=== PATIENT | male | born 1945 | race Caucasian/White ===

== ENCOUNTER 2016-08-07 11:42 | Day surgery (SDC) | payer MEDICARE, BC ==
[~2016-08-07 11:42] MED LIST: Buffered Lidocaine 1% SYR 3ML* 3 ML/SYR SYRINGE INTRADERM ONE; Dexamethasone IV* 4 MG/ML 1 ML (4 MG) IV SLOW PU ONE; Famotidine IV* 10 MG/ML 2 ML (20 mg) IV ONE
[2016-08-07] MEDS ORDERED: Dexamethasone IV* 4 MG/ML 1 ML (4 MG) ONE (12:16)
[2016-08-07] MEDS ORDERED: Famotidine IV* 10 MG/ML 2 ML (20 mg) ONE (12:16)
[2016-08-07] MEDS ORDERED: ceFAZolin 2 GM PREMIX (*) 2 GM/50 ML BAG IVPB ONE (12:17)
[2016-08-07] MEDS ORDERED: Methylene Blue 1%* 10 ML VIAL ONE (13:30)
[2016-08-07] MEDS ORDERED: Lidocain 1% EPI 1:100,000 * 30 ML MDV ONE (13:30)
[2016-08-07] MEDS ORDERED: Bupivacaine 0.25% W/EPI* 50 ML VIAL ONE (13:30)
[2016-08-07] MEDS ORDERED: Mineral Oil Sterile, TOPICAL* 25 ML BTL ONE (13:31)
[2016-08-07] MEDS ORDERED: fentaNYL* 50 MCG/ML 2 ML VIAL (100 MCG VIAL) ONE (13:42)
[2016-08-07] MEDS ORDERED: Ondansetron INJ* 2 MG/ML VIAL ONE (13:42)
[2016-08-07] MEDS ORDERED: Propofol* 10 MG/ML 20 ML BTL IV PUSH ONE (13:42)
[2016-08-07] MEDS ORDERED: Midazolam* 1 MG/ML 5 ML VIAL (5 MG) ONE (13:42)
[2016-08-07 15:42] VITALS: BP 116/64
== END 2016-08-07 15:35 | disposition home or self-care (01) ==
LOC: OR 11:42
PROVIDERS: ATTEND Plastic Surgery
DX: C43.4 Malignant melanoma of scalp and neck (principal); E11.9 Type 2 diabetes mellitus without complications; I25.10 Atherosclerotic heart disease of native coronary artery without angina pectoris; I10 Essential (primary) hypertension; Z85.46 Personal history of malignant neoplasm of prostate; Z95.5 Presence of coronary angioplasty implant and graft; Z95.1 Presence of aortocoronary bypass graft
CPT/HCPCS: 88305; A9270-GY; J0690; J1100; J2250; J2405; J2704; J3010

== ENCOUNTER 2018-02-08 17:04 | Emergency (ER) | payer BC, MEDICARE, OTHER ==
[2018-02-08 20:03] VITALS: BP 0/0
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
== END 2018-02-08 20:02 | disposition home or self-care (01) ==
LOC: ED 17:04
DX: S16.1XXA Strain of muscle, fascia and tendon at neck level, initial encounter (principal); V43.52XA Car driver injured in collision with other type car in traffic accident, initial encounter; Y92.410 Unspecified street and highway as the place of occurrence of the external cause; Z87.891 Personal history of nicotine dependence
CPT/HCPCS: 99282

== ENCOUNTER 2020-04-27 16:22 | Observation (INO) ==
[2020-04-27] MEDS ORDERED: cefTRIAXone 1 gm/50 mL NS BAG 1 GM/50 ML BAG IV ONE (19:56)
[2020-04-27] MEDS ORDERED: Morphine 10 MG/ML VIAL (1 ml) IV ONE (19:57)
[2020-04-27] MEDS ORDERED: Ondansetron 4 mg VIAL 2 MG/ML 2 ml VIAL IV ONE (19:57)
[2020-04-27 20:10] LABS: ABS Monocytes 0.9 10^3/ul (0-0.8); ABS Neutrophils 10.7 10^3/ul (1.5-7.7); Eosinophil % 0.1 %; Hematocrit 45 % (42-52); Hemoglobin 15.5 g/dL (14.0-18.0); Lymphocyte % 7.9 %; Mean Corpuscular HGB Conc 34 g/dL (31-36); Mean Corpuscular Hemoglobin 29 pg (27-31); Mean Corpuscular Volume 84 fL (80-94); Mean Platelet Volume 7.3 fL (7.4-10.4); Platelet Count 223 10^3/uL (150-450); Red Blood Count 5.41 10^6 /uL (4.18-5.48); Red Cell Distribution Width 15 % (10-15); White Blood Count 12.6 10^3/uL (3.5-10.8)
[2020-04-27 20:20] LABS: INR 1.02 (0.82-1.09)
[2020-04-27 20:23] LABS: Troponin I 0.01 ng/mL (<0.03)
[2020-04-27] MEDS: NS 0.9% 1000 ml BAG 2,000 ML IV ONE (20:29)
[2020-04-27 20:30] LABS: Albumin 4.7 g/dL (3.2-5.2); Albumin/Globulin Ratio 1.6 (1-3); BUN/Creatinine Ratio 18.3 (8-20); Calcium 10.1 mg/dL (8.6-10.3); EGFR African American 64.7 (>60); EGFR Non-African American 53.5 (>60); Potassium 4.1 mmol/L (3.5-5.0); Total Bilirubin 0.5 mg/dL (0.2-1.0); Total Protein 7.7 g/dL (6.4-8.9)
[2020-04-27 23:15] LABS: Urine Appearance Cloudy; Urine Bacteria Absent (Absent); Urine Bilirubin Negative (Negative); Urine Blood 3+ (Negative); Urine Glucose Negative (Negative); Urine Ketones Negative (Negative); Urine Nitrite Negative (Negative); Urine Protein 1+(30 mg/dL) (Negative); Urine Red Blood Cell 3+(>10/hpf) (Absent); Urine Specific Gravity 1.009 (1.010-1.030); Urine Squamous Epithelial Cell Present (Absent); Urine Urobilinogen Negative (Negative); Urine White Blood Cell 3+(>20/hpf) (Absent)
[2020-04-27 23:25] LABS: Urine Color Red
[2020-04-28] MEDS ORDERED: Dextrose 50% Syringe 50 ml 25 GM/50 ML SYRINGE IV PUSH PRN (01:03)
[2020-04-28] MEDS: NS 0.9% 1000 ml BAG 1,000 ML IV SCH ×2 (01:24→11:38)
[2020-04-28] MEDS: Morphine 2 MG/ML SYRINGE IV PRN ×3 (04:05→14:58)
[2020-04-28] MEDS: Ondansetron 4 mg VIAL 2 MG/ML 2 ml VIAL IV PRN ×3 (04:07→14:59)
[2020-04-28] MEDS ORDERED: Morphine 2 MG/ML SYRINGE IV PRN ×2 (04:35→16:39)
[2020-04-28 06:33] LABS: ABS Lymphocytes 1.1 10^3/ul (1.0-4.8); ABS Neutrophils 7.1 10^3/ul (1.5-7.7); Eosinophil % 0.5 %; Hematocrit 41 % (42-52); Hemoglobin 13.7 g/dL (14.0-18.0); Lymphocyte % 11.7 %; Mean Corpuscular HGB Conc 34 g/dL (31-36); Mean Corpuscular Hemoglobin 29 pg (27-31); Mean Corpuscular Volume 85 fL (80-94); Mean Platelet Volume 7.4 fL (7.4-10.4); Platelet Count 179 10^3/uL (150-450); Red Blood Count 4.77 10^6 /uL (4.18-5.48); Red Cell Distribution Width 14 % (10-15); White Blood Count 9.3 10^3/uL (3.5-10.8)
[2020-04-28 06:48] LABS: BUN/Creatinine Ratio 15.8 (8-20); Calcium 8.6 mg/dL (8.6-10.3); EGFR African American 54.5 (>60); EGFR Non-African American 45.1 (>60); Potassium 4.1 mmol/L (3.5-5.0)
[2020-04-28] MEDS ORDERED: Isosorbide Mononit ER 60mg TAB PO SCH (09:00)
[2020-04-28] MEDS ORDERED: Aspirin EC 81 mg TAB.EC (enteric coated) PO SCH (09:00)
[2020-04-28] MEDS ORDERED: cefTRIAXone 1 gm/50 mL NS BAG 1 GM/50 ML BAG ONE (17:45)
[2020-04-28] MEDS ORDERED: Ondansetron 4 mg VIAL 2 MG/ML 2 ml VIAL IV PRN (18:54)
[2020-04-28] MEDS ORDERED: fentaNYL 100 mcg/2 ml 50 MCG/ML VIAL IV PRN (18:54)
[2020-04-28] MEDS ORDERED: Naloxone 0.4 mg VIAL 0.4 mg/ml 1 ml VIAL IV PRN (18:54)
[2020-04-28 20:41] VITALS: BP 180/84
== END 2020-04-28 20:59 | disposition home or self-care (01) ==
LOC: ED 16:22 → SSU 16:22
PROVIDERS: ADMIT Student in an Organized Health Care Education/Training Program; ATTEND Urology

== ENCOUNTER 2023-06-15 09:02 | Observation (INO) ==
[2023-06-15 09:31] LABS: ABS Monocytes 0.6 10^3/uL (0.0-1.1); ABS Neutrophils 5.6 10^3/uL (1.5-7.6); ABS Nucleated RBC 0.01 10^3/ul; Eosinophil % 0.5 %; Hematocrit 46.9 % (38-53); Hemoglobin 15.7 g/dL (13.2-16.3); Lymphocyte % 13.5 %; Mean Corpuscular Hemoglobin 28.4 pg (27-33); Mean Corpuscular Hgb Conc 33.5 g/dL (31-36); Mean Corpuscular Volume 84.7 fL (80-97); Mean Platelet Volume 7.5 fL (7.5-11.2); Nucleated Red Blood Cells % 0.1 %/100WBC (0.0-0.8); Platelet Count 210 10^3/uL (150-450); Red Blood Count 5.53 10^6/uL (4.06-5.63); Red Cell Distribution Width 14.9 % (12-17); White Blood Count 7.3 10^3/uL (3.6-10.2)
[2023-06-15 09:40] LABS: INR 1.1 (0.83-1.13)
[2023-06-15 09:51] LABS: ALT 18 U/L (7-52); AST 25 U/L (13-39); Albumin 4.2 g/dL (3.2-5.2); Albumin/Globulin Ratio 1.6 (1-3); Alkaline Phosphatase 33 U/L (35-149); Anion Gap 7 mmol/L (2-16); Blood Urea Nitrogen 29 mg/dL (6-24); CO2 Carbon Dioxide 27 mmol/L (22-32); Calcium 9.5 mg/dL (8.6-10.3); Chloride 100 mmol/L (101-111); Creatinine, Serum 1.49 mg/dL (0.67-1.17); Globulin 2.6 g/dL (2-4); Glucose 187 mg/dL (70-100); Potassium 4.3 mmol/L (3.5-5.0); Sodium 134 mmol/L (135-145); Total Bilirubin 0.5 mg/dL (0.2-1.0); Total Protein 6.8 g/dL (6.4-8.9)
[2023-06-15 09:57] LABS: High Sens Troponin Baseline 7 pg/mL (<20)
[2023-06-15] MEDS ORDERED: cefTRIAXone 2 gm/50 mL D5W 2 GM/50 ML BAG IV ONE (10:32)
[2023-06-15 11:29] LABS: High Sensitivity Troponin 1 Hr 9 pg/mL (<20)
[2023-06-15] MEDS ORDERED: Dextrose 50% Syringe 50 ml 25 GM/50 ML SYRINGE IV PUSH PRN (11:41)
[2023-06-15] MEDS ORDERED: Iohexol 180 (CONTRAST) 10 ML SDV IV ONE (11:42)
[2023-06-15 11:44] LABS: C Reactive Protein < 1.00 mg/L (<8.01); Magnesium 1.9 mg/dL (1.9-2.7)
[2023-06-15] MEDS ORDERED: Lidocaine 2% PF 5 ML VIAL ONE (12:01)
[2023-06-15] MEDS ORDERED: Dexamethasone IV 4 MG/ML VIAL 1 ml VIAL ONE (12:01)
[2023-06-15] MEDS ORDERED: fentaNYL 100 mcg/2 ml 50 MCG/ML VIAL ONE (12:01)
[2023-06-15] MEDS ORDERED: Ondansetron 4 mg VIAL 2 MG/ML 2 ml VIAL ONE (12:01)
[2023-06-15] MEDS ORDERED: Propofol 10 MG/ML 20 ML BTL ONE (12:01)
[2023-06-15 12:02] LABS: Lipase 24 U/L (11.0-82.0)
[2023-06-15] MEDS ORDERED: Famotidine IV 10 MG/ML 2 ml VIAL (20 mg) ONE (12:15)
[2023-06-15] MEDS ORDERED: Phenylephrine IV 10 MG/ML 1 ml VIAL ONE (12:30)
[2023-06-15] MEDS ORDERED: Acetaminophen IV 1 GM/100ML 1,000 MG/100 ML BAG IV PRN (13:12)
[2023-06-15] MEDS ORDERED: Naloxone 0.4 mg VIAL 0.4 mg/ml 1 ml VIAL IV PRN (13:12)
[2023-06-15] MEDS ORDERED: fentaNYL 100 mcg/2 ml 50 MCG/ML VIAL IV PRN (13:12)
[2023-06-15] MEDS ORDERED: Ondansetron 4 mg VIAL 2 MG/ML 2 ml VIAL IV PRN (13:12)
[2023-06-15] MEDS ORDERED: HYDROmorphone 1 MG/1 ML SYRINGE IV PRN (13:12)
[2023-06-15] MEDS: Calcium Carb (TUMS) 500 mg CHEW TAB PO PRN (22:18)
[2023-06-16] MEDS: Calcium Carb (TUMS) 500 mg CHEW TAB PO PRN (02:49)
[2023-06-16] MEDS ORDERED: Ondansetron 4 mg VIAL 2 MG/ML 2 ml VIAL IV PRN (02:54)
[2023-06-16] MEDS ORDERED: Ondansetron 4 mg VIAL 2 MG/ML 2 ml VIAL ONE (03:15)
[2023-06-16 08:34] LABS: ABS Lymphocytes 1.6 10^3/uL (1.0-4.8); Eosinophil % 0.4 %; Hematocrit 48.3 % (38-53); Hemoglobin 16.1 g/dL (13.2-16.3); Lymphocyte % 13.9 %; Mean Corpuscular Hemoglobin 28.2 pg (27-33); Mean Corpuscular Hgb Conc 33.2 g/dL (31-36); Mean Corpuscular Volume 84.9 fL (80-97); Mean Platelet Volume 7.8 fL (7.5-11.2); Platelet Count 220 10^3/uL (150-450); Red Cell Distribution Width 14.9 % (12-17); White Blood Count 11.7 10^3/uL (3.6-10.2)
[2023-06-16 08:51] LABS: Calcium 10.1 mg/dL (8.6-10.3); Creatinine, Serum 1.44 mg/dL (0.67-1.17); Potassium 4.1 mmol/L (3.5-5.0)
[2023-06-16] MEDS ORDERED: Aspirin EC 81 mg TAB.EC (enteric coated) PO SCH (09:00)
[2023-06-16 10:29] VITALS: BP 100/60
== END 2023-06-16 13:20 | disposition home or self-care (01) ==
LOC: ED 09:02 → EDHOLD 11:14 → INTOOBSV 11:14 → SUATTDRO 11:14 → MED 12:07 → AA 12:07 → SSU 12:07
PROVIDERS: ADMIT Hospitalist; ATTEND Student in an Organized Health Care Education/Training Program

== ENCOUNTER 2024-06-19 17:38 | Observation (INO) ==
[2024-06-19] MEDS: Ondansetron 4 mg VIAL 2 MG/ML 2 ml VIAL IV ONE (18:00)
[2024-06-19] MEDS: Acetaminophen IV 1 GM/100ML 1,000 MG/100 ML BAG IV ONE (18:00)
[2024-06-19] MEDS: Lactated Ringers SEPSIS* BAG 2,120 ML IV ONE (18:11)
[2024-06-19 18:13] LABS: ABS Basophils 0.1 10^3/uL (0.0-0.1); ABS Eosinophils 0.1 10^3/uL (0.0-0.5); ABS Lymphocytes 0.8 10^3/uL (1.0-4.8); ABS Monocytes 0.3 10^3/uL (0.0-1.1); ABS Neutrophils 5.6 10^3/uL (1.5-7.6); ABS Nucleated RBC 0.01 10^3/ul; Eosinophil % 1.5 %; Hematocrit 54.7 % (38-53); Hemoglobin 18.4 g/dL (13.2-16.3); Lymphocyte % 11.7 %; Mean Corpuscular Hemoglobin 28.3 pg (27-33); Mean Corpuscular Hgb Conc 33.7 g/dL (31-36); Mean Corpuscular Volume 83.8 fL (80-97); Mean Platelet Volume 7.2 fL (7.5-11.2); Nucleated Red Blood Cells % 0.2 %/100WBC (0.0-0.8); Platelet Count 145 10^3/uL (150-450); Red Blood Count 6.53 10^6/uL (4.06-5.63); Red Cell Distribution Width 16.6 % (12-17); White Blood Count 6.8 10^3/uL (3.6-10.2)
[2024-06-19 18:33] LABS: Activated Partial Thrombo Time 29.5 seconds (26.0-38.0); INR 1.03 (0.85-1.14)
[2024-06-19 18:56] LABS: Albumin 4.5 g/dL (3.5-5.7); Albumin/Globulin Ratio 1.6 (1-3); C Reactive Protein 16.02 mg/L (<8.01); Calcium 10.5 mg/dL (8.6-10.3); Creatinine, Serum 1.26 mg/dL (0.67-1.17); Globulin 2.9 g/dL (2-4); Potassium 3.9 mmol/L (3.5-5.0); Total Bilirubin 0.8 mg/dL (0.2-1.0); Total Protein 7.4 g/dL (6.4-8.9); eGFR CKD-EPI 58.4 (>60)
[2024-06-19 19:15] LABS: Urine Appearance Clear; Urine Bacteria 1+ /HPF (Absent); Urine Bilirubin Negative (Negative); Urine Blood 1+ (Negative); Urine Color Yellow; Urine Glucose 4+ (>=1000 mg/dL) (Negative); Urine Ketones 2+ (Negative); Urine Nitrite Negative (Negative); Urine Protein Trace (Negative); Urine Red Blood Cell 3+(>10/hpf) /HPF (0-Trace); Urine Squamous Epithelial Cell Present /HPF (Absent); Urine Urobilinogen Negative (Negative); Urine White Blood Cell 3+(>20/hpf) /HPF (0-Trace); Urine pH 6.5 (5.0-8.0)
[2024-06-19 19:41] LABS: High Sensitivity Troponin 1 Hr 12 pg/mL (<20)
[2024-06-19] MEDS: cefTRIAXone 2 gm/50 mL D5W 2 GM/50 ML BAG IV ONE (19:48)
[2024-06-19] MEDS ORDERED: Sulfur Hexaflouride MICROSPHR 25 MG VIAL IV PRN (23:26)
[2024-06-19] MEDS: Lactated Ringers 1000 ml BAG 1,000 ML IV SCH (23:51)
[2024-06-20] MEDS ORDERED: Dextrose 50% Syringe 50 ml 25 GM/50 ML SYRINGE IV PUSH PRN (00:47)
[2024-06-20] MEDS: Cefepime 1 GM in Dextrose 1 GM/50 ML BAG IV SCH (01:51)
[2024-06-20] MEDS: Calcium Carb (TUMS) 500 mg CHEW TAB PO PRN (03:16)
[2024-06-20] MEDS: Ondansetron 4 mg VIAL 2 MG/ML 2 ml VIAL IV PRN (03:53)
[2024-06-20 05:58] LABS: ABS Lymphocytes 0.7 10^3/uL (1.0-4.8); ABS Monocytes 0.4 10^3/uL (0.0-1.1); ABS Neutrophils 4.8 10^3/uL (1.5-7.6); ABS Nucleated RBC 0.02 10^3/ul; Eosinophil % 0.8 %; Hematocrit 47.8 % (38-53); Hemoglobin 16.2 g/dL (13.2-16.3); Lymphocyte % 11.8 %; Mean Corpuscular Hemoglobin 28.4 pg (27-33); Mean Corpuscular Volume 83.6 fL (80-97); Mean Platelet Volume 7.4 fL (7.5-11.2); Nucleated Red Blood Cells % 0.3 %/100WBC (0.0-0.8); Platelet Count 122 10^3/uL (150-450); Red Blood Count 5.71 10^6/uL (4.06-5.63); Red Cell Distribution Width 16.7 % (12-17); White Blood Count 6.1 10^3/uL (3.6-10.2)
[2024-06-20 06:03] LABS: Activated Partial Thrombo Time 30.6 seconds (26.0-38.0); INR 1.12 (0.85-1.14)
[2024-06-20 06:16] LABS: Albumin 3.4 g/dL (3.5-5.7); Albumin/Globulin Ratio 1.5 (1-3); Calcium 8.6 mg/dL (8.6-10.3); Creatinine, Serum 1.09 mg/dL (0.67-1.17); Globulin 2.2 g/dL (2-4); Magnesium 1.5 mg/dL (1.9-2.7); Potassium 3.8 mmol/L (3.5-5.0); Total Bilirubin 0.6 mg/dL (0.2-1.0); Total Protein 5.6 g/dL (6.4-8.9); eGFR CKD-EPI 69.5 (>60)
[2024-06-20] MEDS: Magnesium Sulfate 2 gm BAG 2 GM/50 ML BAG IVPB ONE (07:27)
[2024-06-20] MEDS ORDERED: Polyethylene Glycol 3350 17 GM PACKET PO PRN (09:00)
[2024-06-20] MEDS ORDERED: Isosorbide Mononit ER 60mg TAB PO SCH (09:00)
[2024-06-20] MEDS: Magnesium Sulfate IV 1GM/100ML 1 GM/100 ML BAG IV ONE (09:01)
[2024-06-20] MEDS: Heparin 5000 UNITS/ML 1 mL VIAL SUBCUT SCH (09:08)
[2024-06-20] MEDS: Aspirin EC 81 mg TAB.EC (enteric coated) PO SCH (09:08)
[2024-06-20] MEDS: [UNRECOGNIZED DRUG - REMARK] PO SCH (09:11)
[2024-06-20] MEDS: [UNRECOGNIZED DRUG - REMARK] PO SCH (09:11)
[2024-06-20] MEDS ORDERED: cefTRIAXone 1 gm/50 mL D5W 1 GM/50 ML BAG IV SCH (20:00)
[2024-06-21 06:38] LABS: ABS Monocytes 0.5 10^3/uL (0.0-1.1); ABS Neutrophils 3.3 10^3/uL (1.5-7.6); ABS Nucleated RBC 0.04 10^3/ul; Eosinophil % 0.5 %; Hematocrit 48.1 % (38-53); Hemoglobin 16.4 g/dL (13.2-16.3); Lymphocyte % 19.9 %; Mean Corpuscular Volume 82.4 fL (80-97); Mean Platelet Volume 7.3 fL (7.5-11.2); Nucleated Red Blood Cells % 0.8 %/100WBC (0.0-0.8); Platelet Count 128 10^3/uL (150-450); Red Blood Count 5.84 10^6/uL (4.06-5.63); Red Cell Distribution Width 16.3 % (12-17); White Blood Count 4.8 10^3/uL (3.6-10.2)
[2024-06-21 06:51] LABS: Albumin 3.4 g/dL (3.5-5.7); Albumin/Globulin Ratio 1.5 (1-3); Calcium 8.9 mg/dL (8.6-10.3); Creatinine, Serum 0.92 mg/dL (0.67-1.17); Globulin 2.3 g/dL (2-4); Magnesium 1.8 mg/dL (1.9-2.7); Potassium 3.8 mmol/L (3.5-5.0); Total Bilirubin 0.5 mg/dL (0.2-1.0); Total Protein 5.7 g/dL (6.4-8.9); eGFR CKD-EPI 85.1 (>60)
[2024-06-21 10:07] VITALS: BP 137/72
== END 2024-06-21 11:53 | disposition home or self-care (01) ==
LOC: EDHOLD 17:38 → ED 17:38 → SUATTDRO 23:20 → MEDTELE 23:51
PROVIDERS: ADMIT Internal Medicine; ATTEND Internal Medicine

== ENCOUNTER 2024-06-27 03:42 | Observation (INO) ==
[2024-06-27 04:22] LABS: ABS Eosinophils 0.1 10^3/uL (0.0-0.5); ABS Lymphocytes 0.5 10^3/uL (1.0-4.8); ABS Monocytes 0.2 10^3/uL (0.0-1.1); ABS Neutrophils 5.6 10^3/uL (1.5-7.6); ABS Nucleated RBC 0.02 10^3/ul; Eosinophil % 1.6 %; Lymphocyte % 7.3 %; Mean Corpuscular Hemoglobin 28.4 pg (27-33); Mean Corpuscular Hgb Conc 34.5 g/dL (31-36); Mean Corpuscular Volume 82.4 fL (80-97); Mean Platelet Volume 6.7 fL (7.5-11.2); Nucleated Red Blood Cells % 0.3 %/100WBC (0.0-0.8); Platelet Count 184 10^3/uL (150-450); Red Blood Count 6.31 10^6/uL (4.06-5.63); Red Cell Distribution Width 16.7 % (12-17); White Blood Count 6.4 10^3/uL (3.6-10.2)
[2024-06-27 04:33] LABS: Activated Partial Thrombo Time 32.6 seconds (26.0-38.0); INR 1.04 (0.85-1.14)
[2024-06-27 05:06] LABS: Albumin 4.2 g/dL (3.5-5.7); Albumin/Globulin Ratio 1.4 (1-3); C Reactive Protein 37.08 mg/L (<8.01); Calcium 9.7 mg/dL (8.6-10.3); Creatinine, Serum 1.46 mg/dL (0.67-1.17); Potassium 3.7 mmol/L (3.5-5.0); Total Bilirubin 0.8 mg/dL (0.2-1.0); Total Protein 7.2 g/dL (6.4-8.9); eGFR CKD-EPI 48.9 (>60)
[2024-06-27] MEDS: Lactated Ringers 1000 ml BAG 1,000 ML IV ONE ×2 (05:36→13:42)
[2024-06-27] MEDS: Cefepime 2 GM in Dextrose 2 GM/50 ML BAG IV ONE (05:39)
[2024-06-27 05:54] LABS: High Sensitivity Troponin 1 Hr 13 pg/mL (<20)
[2024-06-27] MEDS: Iodixanol 320 (CONTRAST) 100 ML SDV IV ONE ×2 (06:21→09:28)
[2024-06-27] MEDS: Acetaminophen IV 1 GM/100ML 1,000 MG/100 ML BAG IV ONE (07:31)
[2024-06-27] MEDS ORDERED: Senna TAB 8.6 mg TAB PO PRN (10:35)
[2024-06-27] MEDS: Ondansetron 4 mg VIAL 2 MG/ML 2 ml VIAL IV PRN (12:27)
[2024-06-27] MEDS: Ondansetron 4 mg VIAL 2 MG/ML 2 ml VIAL ONE (12:35)
[2024-06-27] MEDS ORDERED: Dextrose 50% Syringe 50 ml 25 GM/50 ML SYRINGE IV PUSH PRN (13:14)
[2024-06-27] MEDS: Enoxaparin 40 MG/0.4 ML SYR SUBCUT SCH (13:27)
[2024-06-27] MEDS ORDERED: Cefepime 2 GM in Dextrose 2 GM/50 ML BAG IV SCH (18:00)
[2024-06-27] MEDS: Cefepime 2 GM in Dextrose 2 GM/50 ML BAG IV SCH (18:27)
[2024-06-27] MEDS: Triamcinolone 0.025% OINT 15 GM TUBE TOPICAL SCH (20:58)
[2024-06-27 21:42] LABS: Urine Appearance Turbid; Urine Bacteria Absent /HPF (Absent); Urine Bilirubin Negative (Negative); Urine Blood 3+ (Negative); Urine Color Yellow; Urine Glucose 4+ (>=1000 mg/dL) (Negative); Urine Ketones 1+ (Negative); Urine Nitrite Negative (Negative); Urine Protein 1+ (>=30 mg/dL) (Negative); Urine Red Blood Cell 3+(>10/hpf) /HPF (0-Trace); Urine Specific Gravity 1.042 (1.002-1.030); Urine Urobilinogen Negative (Negative); Urine White Blood Cell 1+(6-10/hpf) /HPF (0-Trace)
[2024-06-28 06:36] LABS: ABS Lymphocytes 0.7 10^3/uL (1.0-4.8); ABS Monocytes 0.2 10^3/uL (0.0-1.1); ABS Neutrophils 4.7 10^3/uL (1.5-7.6); Eosinophil % 0.2 %; Hemoglobin 16.9 g/dL (13.2-16.3); Lymphocyte % 12.3 %; Mean Corpuscular Hemoglobin 28.1 pg (27-33); Mean Corpuscular Hgb Conc 33.8 g/dL (31-36); Mean Corpuscular Volume 83.4 fL (80-97); Mean Platelet Volume 6.9 fL (7.5-11.2); Nucleated Red Blood Cells % 0.1 %/100WBC (0.0-0.8); Platelet Count 151 10^3/uL (150-450); Red Blood Count 5.99 10^6/uL (4.06-5.63); Red Cell Distribution Width 16.5 % (12-17); White Blood Count 5.5 10^3/uL (3.6-10.2)
[2024-06-28 06:49] LABS: Albumin 3.5 g/dL (3.5-5.7); Albumin/Globulin Ratio 1.3 (1-3); Calcium 9.3 mg/dL (8.6-10.3); Creatinine, Serum 1.3 mg/dL (0.67-1.17); Globulin 2.6 g/dL (2-4); Magnesium 1.7 mg/dL (1.9-2.7); Potassium 4.2 mmol/L (3.5-5.0); Total Bilirubin 0.9 mg/dL (0.2-1.0); Total Protein 6.1 g/dL (6.4-8.9); eGFR CKD-EPI 56.2 (>60)
[2024-06-28] MEDS: Aspirin EC 81 mg TAB.EC (enteric coated) PO SCH (09:47)
[2024-06-28] MEDS: Sulfamethox/Trimethoprim SS TAB 400/80 mg PO SCH (09:48)
[2024-06-28 14:46] LABS: Hepatitis C Antibody Negative (Negative)
[2024-06-28] MEDS: Iodixanol 320 (CONTRAST) 100 ML SDV IV ONE (17:52)
[2024-06-29 01:57] LABS: Hepatitis B Surface Antigen Nonreactive (Nonreactive)
[2024-06-29 02:02] LABS: Hepatitis A Ab IgM Negative (Negative)
[2024-06-29 02:03] LABS: Hepatitis B Core IgM Nonreactive (Nonreactive)
[2024-06-29 05:52] LABS: ABS Lymphocytes 0.6 10^3/uL (1.0-4.8); ABS Monocytes 0.3 10^3/uL (0.0-1.1); ABS Neutrophils 3.5 10^3/uL (1.5-7.6); ABS Nucleated RBC 0.01 10^3/ul; Eosinophil % 0.3 %; Hematocrit 42.8 % (38-53); Hemoglobin 14.8 g/dL (13.2-16.3); Lymphocyte % 14.2 %; Mean Corpuscular Hemoglobin 28.2 pg (27-33); Mean Corpuscular Hgb Conc 34.6 g/dL (31-36); Mean Corpuscular Volume 81.5 fL (80-97); Nucleated Red Blood Cells % 0.3 %/100WBC (0.0-0.8); Platelet Count 194 10^3/uL (150-450); Red Blood Count 5.25 10^6/uL (4.06-5.63); Red Cell Distribution Width 16.7 % (12-17); White Blood Count 4.4 10^3/uL (3.6-10.2)
[2024-06-29 06:10] LABS: Albumin 3.3 g/dL (3.5-5.7); Albumin/Globulin Ratio 1.3 (1-3); Creatinine, Serum 1.36 mg/dL (0.67-1.17); Globulin 2.6 g/dL (2-4); Potassium 4.3 mmol/L (3.5-5.0); Total Bilirubin 0.6 mg/dL (0.2-1.0); Total Protein 5.9 g/dL (6.4-8.9); eGFR CKD-EPI 53.3 (>60)
[2024-06-29] MEDS ORDERED: Iohexol 180 (CONTRAST) 10 ML SDV IV ONE (16:09)
[2024-06-29] MEDS ORDERED: Propofol 10 MG/ML 20 ML BTL ONE ×2 (16:13→17:03)
[2024-06-29] MEDS ORDERED: Lidocaine 2% PF 5 ML VIAL ONE (16:13)
[2024-06-29] MEDS ORDERED: Ondansetron 4 mg VIAL 2 MG/ML 2 ml VIAL ONE (16:13)
[2024-06-29] MEDS ORDERED: fentaNYL 100 mcg/2 ml 50 MCG/ML VIAL ONE (16:13)
[2024-06-29] MEDS ORDERED: Dexamethasone IV 4 MG/ML VIAL 1 ml VIAL ONE (16:13)
[2024-06-29] MEDS ORDERED: Midazolam 2 mg/2 ml VIAL 1 mg/ml 2 ml VIAL (2 mg) ONE (16:14)
[2024-06-29] MEDS ORDERED: Phenylephrine IV 10 MG/ML 1 ml VIAL ONE (16:52)
[2024-06-30 05:50] LABS: ABS Lymphocytes 0.7 10^3/uL (1.0-4.8); ABS Monocytes 0.4 10^3/uL (0.0-1.1); ABS Neutrophils 3.3 10^3/uL (1.5-7.6); Eosinophil % 0.9 %; Hematocrit 42.7 % (38-53); Hemoglobin 14.6 g/dL (13.2-16.3); Lymphocyte % 15.1 %; Mean Corpuscular Hemoglobin 27.9 pg (27-33); Mean Corpuscular Hgb Conc 34.2 g/dL (31-36); Mean Corpuscular Volume 81.5 fL (80-97); Mean Platelet Volume 6.9 fL (7.5-11.2); Nucleated Red Blood Cells % 0.1 %/100WBC (0.0-0.8); Platelet Count 197 10^3/uL (150-450); Red Blood Count 5.24 10^6/uL (4.06-5.63); Red Cell Distribution Width 16.5 % (12-17); White Blood Count 4.3 10^3/uL (3.6-10.2)
[2024-06-30 06:06] LABS: Calcium 9.2 mg/dL (8.6-10.3); Creatinine, Serum 1.25 mg/dL (0.67-1.17); Potassium 4.5 mmol/L (3.5-5.0); eGFR CKD-EPI 58.9 (>60)
[2024-06-30 10:34] VITALS: BP 113/56
== END 2024-06-30 12:20 | disposition home or self-care (01) ==
LOC: ED 03:42 → EDHOLD 03:42 → SUATTDRO 10:35 → SSU 11:22
PROVIDERS: ADMIT Student in an Organized Health Care Education/Training Program; ATTEND Hospitalist

== ENCOUNTER 2024-07-11 11:11 | Inpatient (IN) ==
[2024-07-11] MEDS: Lactated Ringers 1000 ml BAG 1,000 ML IV ONE (12:24)
[2024-07-11 12:34] LABS: ABS Basophils 0.1 10^3/uL (0.0-0.1); ABS Eosinophils 0.2 10^3/uL (0.0-0.5); ABS Lymphocytes 1.6 10^3/uL (1.0-4.8); ABS Monocytes 1.3 10^3/uL (0.0-1.1); ABS Neutrophils 6.2 10^3/uL (1.5-7.6); ABS Nucleated RBC 0.01 10^3/ul; Eosinophil % 2.5 %; Hematocrit 43.7 % (38-53); Hemoglobin 14.8 g/dL (13.2-16.3); Lymphocyte % 17.2 %; Mean Corpuscular Hemoglobin 28.2 pg (27-33); Mean Corpuscular Hgb Conc 33.9 g/dL (31-36); Mean Corpuscular Volume 83.2 fL (80-97); Nucleated Red Blood Cells % 0.1 %/100WBC (0.0-0.8); Platelet Count 204 10^3/uL (150-450); Red Blood Count 5.25 10^6/uL (4.06-5.63); Red Cell Distribution Width 17.2 % (12-17); White Blood Count 9.4 10^3/uL (3.6-10.2)
[2024-07-11 12:47] LABS: Activated Partial Thrombo Time 29.9 seconds (26.0-38.0); INR 1.12 (0.85-1.14)
[2024-07-11 12:58] LABS: ALT 40 U/L (7-52); Albumin 3.6 g/dL (3.5-5.7); Albumin/Globulin Ratio 1.4 (1-3); Alkaline Phosphatase 54 U/L (35-149); Anion Gap 9 mmol/L (2-16); Blood Urea Nitrogen 31 mg/dL (6-24); C Reactive Protein 34.98 mg/L (<8.01); CO2 Carbon Dioxide 25 mmol/L (22-32); Calcium 9.3 mg/dL (8.6-10.3); Chloride 95 mmol/L (101-111); Creatinine, Serum 1.38 mg/dL (0.67-1.17); Globulin 2.6 g/dL (2-4); Glucose 177 mg/dL (70-100); Sodium 129 mmol/L (135-145); Total Bilirubin 0.8 mg/dL (0.2-1.0); Total Protein 6.2 g/dL (6.4-8.9); eGFR CKD-EPI 52.3 (>60)
[2024-07-11 13:07] LABS: High Sens Troponin Baseline 7 pg/mL (<20)
[2024-07-11] MEDS ORDERED: Iohexol 350 (CONTRAST) 500 ML MDV IV ONE (13:20)
[2024-07-11] MEDS: Iodixanol 320 (CONTRAST) 100 ML SDV IV ONE (13:32)
[2024-07-11 14:03] LABS: Potassium Redraw 3.7 mmol/L (3.5-5.0)
[2024-07-11 15:35] LABS: Urine Appearance Clear; Urine Bilirubin Negative (Negative); Urine Blood 3+ (Negative); Urine Color Colorless; Urine Glucose Negative (Negative); Urine Ketones Negative (Negative); Urine Nitrite Negative (Negative); Urine Protein 1+ (>=30 mg/dL) (Negative); Urine Specific Gravity 1.039 (1.002-1.030); Urine Urobilinogen Negative (Negative)
[2024-07-11 15:41] LABS: Urine Bacteria Absent /HPF (Absent); Urine Red Blood Cell 3+(>10/hpf) /HPF (0-Trace); Urine Squamous Epithelial Cell Present /HPF (Absent); Urine White Blood Cell 3+(>20/hpf) /HPF (0-Trace)
[2024-07-11] MEDS: cefTRIAXone 2 gm/50 mL D5W 2 GM/50 ML BAG IV ONE (16:56)
[2024-07-11] MEDS: Enoxaparin 30 MG/0.3 ML SYR SUBCUT SCH (17:18)
[2024-07-11] MEDS: Isosorbide Mononit ER 60mg TAB PO SCH (20:50)
[2024-07-11] MEDS: POTASSIUM CITRATE 10 MEQ PO SCH (20:50)
[2024-07-11] MEDS: NF:ICOSAPENT ETHYL 1 GM CAPSULE (NF) PO SCH (20:51)
[2024-07-11] MEDS: Triamcinolone 0.025% OINT 15 GM TUBE TOPICAL SCH (20:51)
[2024-07-12 05:53] LABS: ABS Basophils 0.1 10^3/uL (0.0-0.1); ABS Eosinophils 0.3 10^3/uL (0.0-0.5); ABS Lymphocytes 1.4 10^3/uL (1.0-4.8); ABS Monocytes 0.8 10^3/uL (0.0-1.1); ABS Neutrophils 4.6 10^3/uL (1.5-7.6); ABS Nucleated RBC 0.01 10^3/ul; Eosinophil % 3.6 %; Hematocrit 41.7 % (38-53); Hemoglobin 14.1 g/dL (13.2-16.3); Lymphocyte % 19.5 %; Mean Corpuscular Hemoglobin 27.9 pg (27-33); Mean Corpuscular Hgb Conc 33.7 g/dL (31-36); Mean Corpuscular Volume 82.7 fL (80-97); Mean Platelet Volume 7.2 fL (7.5-11.2); Nucleated Red Blood Cells % 0.2 %/100WBC (0.0-0.8); Platelet Count 175 10^3/uL (150-450); Red Blood Count 5.04 10^6/uL (4.06-5.63); Red Cell Distribution Width 17.2 % (12-17); White Blood Count 7.1 10^3/uL (3.6-10.2)
[2024-07-12 06:38] LABS: Creatinine, Serum 1.3 mg/dL (0.67-1.17); Magnesium 1.5 mg/dL (1.9-2.7); Potassium 4.3 mmol/L (3.5-5.0); eGFR CKD-EPI 56.2 (>60)
[2024-07-12] MEDS: Magnesium Sulf 4 GM/100 ML IV 4,000 MG/100 ML BAG IVPB ONE (08:38)
[2024-07-12] MEDS: Aspirin EC 81 mg TAB.EC (enteric coated) PO SCH (08:41)
[2024-07-12] MEDS: Lactated Ringers 1000 ml BAG 1,000 ML IV SCH (13:44)
[2024-07-12] MEDS ORDERED: cefTRIAXone 2 gm/50 mL D5W 2 GM/50 ML BAG IV SCH ×2 (17:00)
[2024-07-13] MEDS ORDERED: Ondansetron 4 mg VIAL 2 MG/ML 2 ml VIAL IV PRN (06:33)
[2024-07-13] MEDS ORDERED: Zosyn per Pharmacy NOTE FOLLOW UP SCH (09:00)
[2024-07-13] MEDS: Piperacillin/Tazobac 3.375 BAG 3.375 GM/100 ML BAG IV ONE (09:50)
[2024-07-13] MEDS ORDERED: Vancomycin 1,000 MG in NS 0.9% 250 ml 250 ML IVPB ONE (11:46)
[2024-07-13] MEDS: Lactated Ringers SEPSIS* BAG 2,120 ML IV ONE (11:57)
[2024-07-13] MEDS ORDERED: Vancomycin per Pharmacy 1 EA NOTE FOLLOW UP SCH (12:00)
[2024-07-13] MEDS: Vancomycin 1,250 MG in NS 0.9% 250 ml 250 ML IVPB ONE (12:03)
[2024-07-13 12:29] LABS: ABS Basophils 0.1 10^3/uL (0.0-0.1); ABS Eosinophils 0.1 10^3/uL (0.0-0.5); ABS Lymphocytes 0.5 10^3/uL (1.0-4.8); ABS Monocytes 0.3 10^3/uL (0.0-1.1); ABS Neutrophils 5.1 10^3/uL (1.5-7.6); ABS Nucleated RBC 0.01 10^3/ul; Eosinophil % 1.5 %; Hematocrit 39.6 % (38-53); Hemoglobin 13.3 g/dL (13.2-16.3); Mean Corpuscular Hemoglobin 27.5 pg (27-33); Mean Corpuscular Hgb Conc 33.7 g/dL (31-36); Mean Corpuscular Volume 81.5 fL (80-97); Mean Platelet Volume 7.2 fL (7.5-11.2); Nucleated Red Blood Cells % 0.2 %/100WBC (0.0-0.8); Platelet Count 137 10^3/uL (150-450); Red Blood Count 4.86 10^6/uL (4.06-5.63); Red Cell Distribution Width 16.9 % (12-17); White Blood Count 6.1 10^3/uL (3.6-10.2)
[2024-07-13] MEDS: Lactated Ringers 1000 ml BAG 1,000 ML IV ONE ×2 (12:35→21:30)
[2024-07-13 12:46] LABS: Albumin 3.1 g/dL (3.5-5.7); Albumin/Globulin Ratio 1.4 (1-3); Creatinine, Serum 1.21 mg/dL (0.67-1.17); Globulin 2.2 g/dL (2-4); Potassium 3.3 mmol/L (3.5-5.0); Total Bilirubin 0.9 mg/dL (0.2-1.0); Total Protein 5.3 g/dL (6.4-8.9); eGFR CKD-EPI 61.3 (>60)
[2024-07-13 13:51] LABS: Magnesium 1.4 mg/dL (1.9-2.7)
[2024-07-13 13:59] LABS: C Reactive Protein 126.26 mg/L (<8.01)
[2024-07-13] MEDS: ZOSYN 3.375 GM Q8H per EXTENDED INFUSION IV SCH (14:09)
[2024-07-13] MEDS: KCL 20 MEQ/100 ML IVPREMIX 20 MEQ/100 ML BAG IV ONE (14:12)
[2024-07-13] MEDS: Hydrocortisone INJ 100 MG/2ML 2 ML VIAL IV ONE (15:58)
[2024-07-13] MEDS: Lactated Ringers 1000 ml BAG 1,000 ML IV SCH (15:58)
[2024-07-13] MEDS: Magnesium Sulf 4 GM/100 ML IV 4,000 MG/100 ML BAG IVPB ONE (21:23)
[2024-07-13] MEDS: Isosorbide Mononit ER 60mg TAB PO SCH (21:34)
[2024-07-13] MEDS: Norepinephrine 32MCG/ML D5WBAG 8,000 MCG/250 ML BAG IV SCH (23:00)
[2024-07-13] MEDS: Vancomycin 750 MG in NS 0.9% 250 ML IVPB SCH (23:44)
[2024-07-14 00:25] LABS: Venous Bicarbonate HCO3 22.9 mmol/L (24-28)
[2024-07-14 00:28] LABS: ABS Lymphocytes 0.5 10^3/uL (1.0-4.8); ABS Monocytes 0.2 10^3/uL (0.0-1.1); ABS Neutrophils 5.3 10^3/uL (1.5-7.6); Eosinophil % 0.1 %; Hematocrit 38.8 % (38-53); Hemoglobin 13.1 g/dL (13.2-16.3); Lymphocyte % 8.2 %; Mean Corpuscular Hemoglobin 27.6 pg (27-33); Mean Corpuscular Hgb Conc 33.8 g/dL (31-36); Mean Corpuscular Volume 81.8 fL (80-97); Mean Platelet Volume 7.2 fL (7.5-11.2); Platelet Count 134 10^3/uL (150-450); Red Blood Count 4.74 10^6/uL (4.06-5.63); Red Cell Distribution Width 16.7 % (12-17); White Blood Count 5.9 10^3/uL (3.6-10.2)
[2024-07-14] MEDS: [UNRECOGNIZED DRUG - OTHER] IV ONE (00:31)
[2024-07-14] MEDS: NOREPINEPHRINE IV ONE (00:31)
[2024-07-14] MEDS ORDERED: Dextrose 50% Syringe 50 ml 25 GM/50 ML SYRINGE IV PUSH PRN (00:37)
[2024-07-14] MEDS: Hydrocortisone INJ 100 MG/2ML 2 ML VIAL IV ONE (00:40)
[2024-07-14 00:52] LABS: INR 1.42 (0.85-1.14)
[2024-07-14 01:07] LABS: ALT 143 U/L (7-52); Albumin 2.9 g/dL (3.5-5.7); Albumin/Globulin Ratio 1.2 (1-3); Alkaline Phosphatase 63 U/L (35-149); Anion Gap 11 mmol/L (2-16); Blood Urea Nitrogen 23 mg/dL (6-24); CO2 Carbon Dioxide 21 mmol/L (22-32); Calcium 8.1 mg/dL (8.6-10.3); Chloride 97 mmol/L (101-111); Creatinine, Serum 0.95 mg/dL (0.67-1.17); Globulin 2.4 g/dL (2-4); Glucose 156 mg/dL (70-100); Sodium 129 mmol/L (135-145); Total Bilirubin 0.8 mg/dL (0.2-1.0); Total Protein 5.3 g/dL (6.4-8.9); eGFR CKD-EPI 81.9 (>60)
[2024-07-14 02:18] LABS: Magnesium 2.5 mg/dL (1.9-2.7); Potassium Redraw 3.5 mmol/L (3.5-5.0)
[2024-07-14 05:22] LABS: ABS Lymphocytes 0.5 10^3/uL (1.0-4.8); ABS Monocytes 0.1 10^3/uL (0.0-1.1); ABS Neutrophils 5.1 10^3/uL (1.5-7.6); Eosinophil % 0.1 %; Hematocrit 39.7 % (38-53); Hemoglobin 13.5 g/dL (13.2-16.3); Lymphocyte % 9.4 %; Mean Corpuscular Hemoglobin 27.7 pg (27-33); Mean Corpuscular Hgb Conc 34.1 g/dL (31-36); Mean Corpuscular Volume 81.4 fL (80-97); Mean Platelet Volume 7.5 fL (7.5-11.2); Platelet Count 139 10^3/uL (150-450); Red Blood Count 4.87 10^6/uL (4.06-5.63); Red Cell Distribution Width 17.2 % (12-17); White Blood Count 5.8 10^3/uL (3.6-10.2)
[2024-07-14 06:08] LABS: Albumin 2.8 g/dL (3.5-5.7); Albumin/Globulin Ratio 1.5 (1-3); Calcium 7.3 mg/dL (8.6-10.3); Creatinine, Serum 0.83 mg/dL (0.67-1.17); Globulin 1.9 g/dL (2-4); Magnesium 1.9 mg/dL (1.9-2.7); Potassium 3.3 mmol/L (3.5-5.0); Total Bilirubin 0.7 mg/dL (0.2-1.0); Total Protein 4.7 g/dL (6.4-8.9); eGFR CKD-EPI 89.6 (>60)
[2024-07-14 10:05] LABS: C Reactive Protein 202.58 mg/L (<8.01)
[2024-07-14] MEDS: DOXYcycline 100 MG in NS 0.9% 250 ml 250 ML IVPB SCH (13:36)
[2024-07-14 15:43] LABS: Urine Appearance Extra Turbid; Urine Bacteria Absent /HPF (Absent); Urine Bilirubin Negative (Negative); Urine Blood 3+ (Negative); Urine Glucose Negative (Negative); Urine Ketones Trace (Negative); Urine Nitrite Negative (Negative); Urine Protein 1+ (>=30 mg/dL) (Negative); Urine Red Blood Cell 3+(>10/hpf) /HPF (0-Trace); Urine Urobilinogen Negative (Negative); Urine White Blood Cell 2+(11-20/hpf) /HPF (0-Trace); Urine pH 5.5 (5.0-8.0)
[2024-07-14 15:45] LABS: Urine Color Light-Red
[2024-07-14] MEDS: Enoxaparin 40 MG/0.4 ML SYR SUBCUT SCH (17:48)
[2024-07-14 20:39] LABS: High Sensitivity Troponin 1 Hr 139 pg/mL (<20)
[2024-07-14 22:32] LABS: High Sensitivity Troponin 3 Hr 233 pg/mL (<20)
[2024-07-14] MEDS: Heparin 5000 UNITS/ML 1 mL VIAL IV SCH (22:58)
[2024-07-14] MEDS: Heparin DRIP 25,000 UNITS BAG 25,000 UNITS/250 ML BAG IV SCH (23:01)
[2024-07-15 05:54] LABS: ABS Lymphocytes 0.6 10^3/uL (1.0-4.8); ABS Monocytes 0.5 10^3/uL (0.0-1.1); ABS Neutrophils 4.7 10^3/uL (1.5-7.6); Eosinophil % 0.1 %; Hematocrit 35.1 % (38-53); Lymphocyte % 9.6 %; Mean Corpuscular Hemoglobin 27.8 pg (27-33); Mean Corpuscular Hgb Conc 34.1 g/dL (31-36); Mean Corpuscular Volume 81.4 fL (80-97); Mean Platelet Volume 7.7 fL (7.5-11.2); Platelet Count 152 10^3/uL (150-450); Red Blood Count 4.31 10^6/uL (4.06-5.63); Red Cell Distribution Width 16.7 % (12-17); White Blood Count 5.8 10^3/uL (3.6-10.2)
[2024-07-15 07:01] LABS: Albumin/Globulin Ratio 1.4 (1-3); Creatinine, Serum 0.93 mg/dL (0.67-1.17); Globulin 2.1 g/dL (2-4); Magnesium 1.7 mg/dL (1.9-2.7); Potassium 3.5 mmol/L (3.5-5.0); Total Bilirubin 0.4 mg/dL (0.2-1.0); Total Protein 5.1 g/dL (6.4-8.9)
[2024-07-15] MEDS: Sulfur Hexaflouride MICROSPHR 25 MG VIAL IV PRN (09:32)
[2024-07-15 09:36] LABS: High Sensitivity Troponin 1 Hr 976 pg/mL (<20)
[2024-07-15] MEDS ORDERED: Vancomycin Trough Check NOTE FOLLOW UP ONE (11:00)
[2024-07-15 15:45] LABS: Urine Appearance Turbid; Urine Bacteria 1+ /HPF (Absent); Urine Bilirubin Negative (Negative); Urine Blood 3+ (Negative); Urine Glucose Negative (Negative); Urine Ketones Negative (Negative); Urine Nitrite Negative (Negative); Urine Protein 1+ (>=30 mg/dL) (Negative); Urine Red Blood Cell 3+(>10/hpf) /HPF (0-Trace); Urine Specific Gravity 1.012 (1.002-1.030); Urine Urobilinogen Negative (Negative); Urine White Blood Cell 3+(>20/hpf) /HPF (0-Trace); Urine pH 6.5 (5.0-8.0)
[2024-07-15 15:53] LABS: Urine Color Amber
[2024-07-15 17:40] LABS: Ferritin 1581.7 ng/mL (24-336)
[2024-07-16 02:13] LABS: Adenovirus Undetected (Undetected); Bordetella parapertussis Undetected (Undetected); Bordetella pertussis Undetected (Undetected); Chlamydophila pneumoniae Undetected (Undetected); Coronavirus 229E Undetected (Undetected); Coronavirus HKU1 Undetected (Undetected); Coronavirus NL63 Undetected (Undetected); Coronavirus OC43 Undetected (Undetected); Human Metapneumovirus Undetected (Undetected); Human Rhinovirus/Enterovirus Undetected (Undetected); Influenza A Undetected (Undetected); Influenza B Undetected (Undetected); Mycoplasmoides pneumoniae Undetected (Undetected); Parainfluenza Virus 1 Undetected (Undetected); Parainfluenza Virus 2 Undetected (Undetected); Parainfluenza Virus 3 Undetected (Undetected); Parainfluenza Virus 4 Undetected (Undetected); Respiratory Syncytial Virus Undetected (Undetected); Specimen Source NASOPHARYNGEAL SWAB
[2024-07-16 06:59] LABS: ABS Eosinophils 0.1 10^3/uL (0.0-0.5); ABS Lymphocytes 0.9 10^3/uL (1.0-4.8); ABS Monocytes 0.5 10^3/uL (0.0-1.1); ABS Neutrophils 3.6 10^3/uL (1.5-7.6); Hematocrit 32.9 % (38-53); Hemoglobin 11.4 g/dL (13.2-16.3); Lymphocyte % 18.1 %; Mean Corpuscular Hemoglobin 28.3 pg (27-33); Mean Corpuscular Hgb Conc 34.6 g/dL (31-36); Mean Corpuscular Volume 81.8 fL (80-97); Mean Platelet Volume 7.4 fL (7.5-11.2); Nucleated Red Blood Cells % 0.1 %/100WBC (0.0-0.8); Platelet Count 165 10^3/uL (150-450); Red Blood Count 4.02 10^6/uL (4.06-5.63); White Blood Count 5.2 10^3/uL (3.6-10.2)
[2024-07-16 08:10] LABS: Albumin 2.9 g/dL (3.5-5.7); Albumin/Globulin Ratio 1.4 (1-3); Calcium 7.9 mg/dL (8.6-10.3); Creatinine, Serum 0.83 mg/dL (0.67-1.17); Globulin 2.1 g/dL (2-4); Magnesium 1.6 mg/dL (1.9-2.7); Potassium 3.2 mmol/L (3.5-5.0); Total Bilirubin 0.4 mg/dL (0.2-1.0); eGFR CKD-EPI 89.6 (>60)
[2024-07-16 08:25] LABS: Creatinine, Serum 0.82 mg/dL (0.67-1.17); Potassium 3.1 mmol/L (3.5-5.0); eGFR CKD-EPI 89.9 (>60)
[2024-07-16] MEDS: Potassium Chlor 20 meq TAB.ER PO ONE (09:58)
[2024-07-16 10:10] VITALS: BP 111/65
[2024-07-18 00:08] LABS: Anaplasma phagocytophilum Negative (Negative); B. miyamotoi PCR, B Negative (Negative); Babesia divergens/MO-1 Negative (Negative); Babesia ducani Negative (Negative); Ehrlichia chaffeensis Negative (Negative); Ehrlichia ewingii/canis Negative (Negative); Ehrlichia muris eauclairensis Negative (Negative)
== END 2024-07-16 11:27 | disposition short-term general hospital (02) | DRG 871 ==
LOC: ED 11:11 → EDHOLD 11:11 → SUATTDRO 16:49 → MEDTELE 17:21 → SUATTDRO 07-13 10:53 → ICU 07-13 23:05 → MEDTELE 07-14 16:12
PROVIDERS: ADMIT Student in an Organized Health Care Education/Training Program; ATTEND Internal Medicine